=== PATIENT | male | born 1950 | race Caucasian/White ===

== ENCOUNTER 2017-12-07 06:27 | Day surgery (SDC) | payer MEDICARE, BC ==
[2017-12-07] MEDS: Lactated Ringers 1,000 ML IV SCH (06:42)
[2017-12-07] MEDS ORDERED: Propofol 200 MG/20 ML SDV ONE (07:42)
[2017-12-07] MEDS ORDERED: fentaNYL 100 MCG/2 ML SDV ONE (07:43)
[2017-12-07] MEDS ORDERED: Midazolam 1 MG/ML 2 ML SDV ONE (07:43)
[2017-12-07 09:27] VITALS: BP 122/78
--- NOTE | 2017-12-07 12:15 | OR ---
DATE OF PROCEDURE: 12/07/2017 PREOPERATIVE DIAGNOSIS: Blood in the stool. POSTOPERATIVE DIAGNOSES: 1. Distal rectal mass. 2. Polyp at 30 cm from the anal verge. 3. Diverticulosis. PROCEDURES: 1. Colonoscopy to the cecum with biopsy resection of small polyp 30 cm from the anal verge. 2. Snare cautery polypectomy of distal rectal mass. SURGEON: Rashaun Richmond MD. ANESTHESIA: IV anesthesia with monitored anesthesia care. INDICATION: This 67-year-old white male is here for a colonoscopy because of blood in his stool. His last colonoscopic exam he says was done in 2010. I counseled him for the procedure including risks and alternatives, and he gave his informed consent to proceed. DESCRIPTION OF PROCEDURE: The patient was placed in the left lateral decubitus position. IV anesthesia was administered by the Anesthesia Service. Time-out was held. A rectal exam was performed, where a soft mass was palpated. This was quite mobile. The flexible video Olympus colonoscope was then introduced through his anus, up his rectum and out his colon all the way to the cecum. En route, we saw several left-sided diverticula. There was no bleeding or inflammation associated with any of them. Once the cecum was reached, the scope was slowly withdrawn, examining the mucosa throughout. No other mucosal abnormalities were noted until we reached 30 cm from the anal verge. Here, we saw a small polyp, which was removed with a couple of bites of the biopsy forceps. The scope was withdrawn further. No other lesions were noted, until we retroflexed the scope in the rectum. Here, we saw a mass Right at the anus/rectum junction. A snare was passed about its base, it was elevated up away from the bowel wall and amputated as electrocautery was applied. The mass was removed and sent to pathology. The scope was then removed. He tolerated the procedure well. Rashaun Richmond MD /[id number] MTDD
== END 2017-12-07 09:30 | disposition home or self-care (01) ==
LOC: JP.SDS 06:27
PROVIDERS: ATTEND Surgery
DX: C20 Malignant neoplasm of rectum (principal); K63.5 Polyp of colon; K57.30 Diverticulosis of large intestine without perforation or abscess without bleeding; K21.9 Gastro-esophageal reflux disease without esophagitis; Z88.1 Allergy status to other antibiotic agents; Z91.030 Bee allergy status
CPT/HCPCS: 45380; 45385; 88305; J2250; J2704; J3010; J7120

== ENCOUNTER 2017-12-29 08:17 | Emergency (ER) | payer MEDICARE, BC ==
[2017-12-29] MEDS ORDERED: Sodium Chloride 0.9% 1,000 ML IV SCH (08:30)
[2017-12-29] MEDS ORDERED: Adenosine 6 MG/2 ML SDV IVPUSH ONE (08:30)
--- NOTE | 2017-12-29 08:40 | EDM.PDOC ---
ED HPI GENERAL MEDICAL PROBLEM - General Chief Complaint: Cardiovascular Problem Stated Complaint: THINK A-FIB Time Seen by Provider: 12/29/17 08:30 Source of Information: Reports: Patient, Old Records, RN History Limitations: Reports: Other (incomplete records) - History of Present Illness INITIAL COMMENTS - FREE TEXT/NARRATIVE: 67 yo male presents with heart palpitations since the middle of the night. He has no SOB or chest pain and is not light-headed with standing. He was cardioverted in [place] somewhat recently by cardiology for A flutter on referral from his primary. Has taken all his meds as prescribed and on time. Here now with his . Onset: Today Onset Date: 12/29/17 Onset Time: 04:00 Duration: Hour(s):, Constant Location: Reports: Chest Quality: Reports: Other (no pain) Severity: Mild Improves with: Reports: None Worsens with: Reports: None Context: Reports: Other (PHx of aflutter) Associated Symptoms: Reports: Other (some mild flushing) Treatments BI ANALYST: Reports: Other (see below) (none) - Related Data Allergies Allergy/AdvReac Type Severity Reaction Status Date / Time erythromycin base Allergy Other Verified 12/29/17 08:28 venom-honey bee Allergy Other Verified 12/29/17 08:28 [bee venom (honey bee)] Home Meds: Home Meds EPINEPHrine [Epipen 2-[place]] 0.3 mg IM ASDIRECTED PRN 03/19/15 [History] Multivitamin [Multi-Vitamin Daily] 1 tab PO DAILY 03/19/15 [History] Apixaban [Eliquis] 2.5 mg PO BID 12/02/17 [History] Cetirizine HCl [Zyrtec] 10 mg PO DAILY 12/02/17 [History] Ferrous Sulfate 325 mg PO BID 12/02/17 [History] Fluorouracil [Efudex 5% Cream] 1 applic TOP DAILY 12/02/17 [History] Lisinopril [Zestril] 2.5 mg PO DAILY 12/02/17 [History] Magnesium Citrate 200 mg PO DAILY 12/02/17 [History] Metoprolol Succinate [Toprol Xl] 100 mg PO DAILY 12/02/17 [History] traZODone HCl [Trazodone HCl] 50 mg PO BEDTIME PRN 12/02/17 [History] Past Medical History HEENT History: Reports: Cataract, Impaired Vision Cardiovascular History: Reports: Hypertension Other Cardiovascular History: cardoiversion 2017 Gastrointestinal History: Reports: Hemorrhoids Hematologic History: Reports: Anemia, Iron Deficiency Oncologic (Cancer) History: Reports: Basal Cell Carcinoma, Other (See Below) Other Oncologic History: basal cell Dermatologic History: Reports: Other (See Below) Other Dermatologic History: basal didier - Infectious Disease History Infectious Disease History: Reports: Chicken Pox, Mumps - Past Surgical History Cardiovascular Surgical History: Reports: Other (See Below) Other Cardiovascular Surgeries/Procedures: cardioversion 2017 GI Surgical History: Reports: Colonoscopy, Hernia, Inguinal Neurological Surgical History: Reports: Other (See Below) Other Neurological Surgeries/Procedures: temporalectomy Oncologic Surgical History: Reports: Other (See Below) Other Oncologic Surgeries/Procedures: basal cell removal Social & Family History - Family History Family Medical History: Noncontributory - Caffeine Use Caffeine Use: Reports: None ED ROS GENERAL - Review of Systems Review Of Systems: See Below Constitutional: Reports: No Symptoms HEENT: Reports: No Symptoms Respiratory: Reports: No Symptoms Cardiovascular: Reports: Palpitations GI/Abdominal: Reports: No Symptoms : Reports: No Symptoms Musculoskeletal: Reports: No Symptoms Skin: Reports: Other (mild flushing) Neurological: Reports: No Symptoms ED EXAM, GENERAL - Physical Exam Exam: See Below Exam Limited By: No Limitations General Appearance: Alert, WD/WN, No Apparent Distress Eye Exam: Bilateral Eye: Normal Inspection, PERRL Ears: Normal External Exam, Normal Canal, Hearing Grossly Normal Ear Exam: Bilateral Ear: Auricle Normal, Canal Normal Nose: Normal Inspection, Normal Mucosa, No Blood Throat/Mouth: Normal Inspection, Normal Lips, Normal Oropharynx, Normal Voice, No Airway Compromise Head: Atraumatic, Normocephalic Neck: Normal Inspection, Supple Respiratory/Chest: No Respiratory Distress, Lungs Clear, Normal Breath Sounds, No Accessory Muscle Use Cardiovascular: Regular Rate, Rhythm, Tachycardia GI/Abdominal: Normal Bowel Sounds, Soft, Non-Tender, No Distention Back Exam: Normal Inspection Extremities: Normal Inspection Neurological: Alert, Oriented, CN II-XII Intact, Normal Cognition, No Motor/ Sensory Deficits Psychiatric: Normal Affect, Normal Mood Skin Exam: Warm, Dry, Intact, Normal Color, No Rash Lymphatic: No Adenopathy EKG INTERPRETATION EKG Date: 12/29/17 Time: 08:25 Rhythm: A-Flutter Rate (Beats/Min): 136 [place]: Normal P-Wave: Absent QRS: Normal ST-T: Normal QT: Prolonged Comparison: NA - No Prior EKG Course - Vital Signs Text/Narrative:: Adenosine 6 mg IV given which transiently slowed his rate revealing the underlying flutter. When he sped up again he was back in the rhythm that he presented with. Anesthesia contacted for sedation before attempted cardioversion. Under propofol anesthesia Mr. Rene was cardioverted with 200J and converted to NSR in the 70-80's. BP initially in the 80's after cardioversion. He was given the rest of his liter of NS in a bolus and BP came up into the mid 90's and he is feeling fine. Last Recorded V/S: Last Vital Signs Temp 36.6 C 12/29/17 08:31 Pulse 79 12/29/17 10:15 Resp 23 H 12/29/17 10:15 BP 80/52 L 12/29/17 10:15 Pulse Ox 97 12/29/17 10:15 - Orders/Labs/Meds Orders: Active Orders 24 hr Category Date Time Status Cardiac Monitoring [RC] .As Directed Care 12/29/17 08:29 Active EKG Documentation Completion [RC] ASDIRECTED Care 12/29/17 08:29 Active Sodium Chloride 0.9% [Normal Saline] 1,000 ml Med 12/29/17 08:30 Active IV ASDIRECTED EKG 12 Lead [EK] Routine Ther 12/29/17 08:29 Ordered Medication Orders Sodium Chloride (Normal Saline) 1,000 mls @ 150 mls/hr IV ASDIRECTED JOÃO Last Admin: 12/29/17 08:47 Dose: 150 mls/hr Labs: Laboratory Tests 12/29/17 12/29/17 Range/Units 08:27 09:22 Sodium 140 (140-148) mmol/L Potassium 4.0 (3.6-5.2) mmol/L Chloride 105 (100-108) mmol/L Carbon Dioxide 22 (21-32) mmol/L Anion Gap 13.2 (5.0-14.0) mmol/L BUN 20 H (7-18) mg/dL Creatinine 1.4 H (0.8-1.3) mg/dL Est Cr Clr Drug Dosing TNP Estimated GFR (MDRD) 51 L (>60) Glucose 120 H (74-106) mg/dL Calcium 8.8 (8.5-10.1) mg/dL Troponin I < 0.017 (0.000-0.056) ng/mL TSH, Ultra Sensitive 1.840 (0.358-3.740) uIU/mL Meds: Medications Generic Name Dose Route Start Last Admin Trade Name Freq PRN Reason Stop Dose Admin Sodium Chloride 1,000 mls @ 150 mls/hr 12/29/17 08:30 12/29/17 08:47 Normal Saline IV 150 mls/hr ASDIRECTED JOÃO Administration Discontinued Medications Generic Name Dose Route Start Last Admin Trade Name Freq PRN Reason Stop Dose Admin Adenosine 6 mg 12/29/17 08:30 12/29/17 08:43 Adenocard IVPUSH 12/29/17 08:31 6 mg NOW ONE Administration Propofol Confirm 12/29/17 10:18 Diprivan 20 Ml Administered 12/29/17 10:19 Dose 200 mg .ROUTE .STK-MED ONE Departure - Departure Time of Disposition: 11:00 Disposition: Home, Self-Care 01 Condition: Good Clinical Impression: Encounter for cardioversion procedure Atrial flutter Qualifiers: Atrial flutter type: unspecified Qualified Code(s): I48.92 - Unspecified atrial flutter Instructions: Atrial Flutter Referrals: oJse Lynn MD [Primary Care Provider] - Forms: ED Department Discharge Additional Instructions: Continue your usual medications. Contact your load out worker to discuss today's events and to decide if follow up or med change is needed. Return here as needed. No driving for the next 6 hrs. - My Orders Last 24 Hours: My Active Orders 12/29/17 08:29 Cardiac Monitoring [RC] .As Directed EKG Documentation Completion [RC] ASDIRECTED EKG 12 Lead [EK] Routine 12/29/17 08:30 Sodium Chloride 0.9% [Normal Saline] 1,000 ml IV ASDIRECTED - Assessment/Plan Last 24 Hours: My Active Orders 12/29/17 08:29 Cardiac Monitoring [RC] .As Directed EKG Documentation Completion [RC] ASDIRECTED EKG 12 Lead [EK] Routine 12/29/17 08:30 Sodium Chloride 0.9% [Normal Saline] 1,000 ml IV ASDIRECTED
[2017-12-29] MEDS ORDERED: Propofol 200 MG/20 ML SDV ONE (10:18)
[2017-12-29 10:51] VITALS: BP 80/52
== END 2017-12-29 11:23 | disposition home or self-care (01) ==
LOC: JP.ED 08:17
DX: I48.92 Unspecified atrial flutter (principal); I10 Essential (primary) hypertension; D50.9 Iron deficiency anemia, unspecified; Z79.899 Other long term (current) drug therapy; Z88.1 Allergy status to other antibiotic agents; Z91.030 Bee allergy status
CPT/HCPCS: 36415; 80048; 84443; 84484; 92960; 93005; 93010; 96361; 96374; 99284; J0153; J2704; J7030

== ENCOUNTER 2018-04-26 08:38 | Day surgery (SDC) | payer MEDICARE, BC ==
[2018-04-26] MEDS ORDERED: Sodium Phosphate,Monobasic/Sodium Phosphate,Dibasic Enema 133 ML Bottle RECTAL ONE ×2 (08:50→09:15)
[2018-04-26] MEDS ORDERED: Lactated Ringers 1,000 ML IV SCH (09:00)
[2018-04-26 09:14] VITALS: BP 131/77
--- NOTE | 2018-04-26 12:28 | OR ---
DATE OF PROCEDURE: 04/26/2018 PREOPERATIVE DIAGNOSIS: History of distal rectal cancer. POSTOPERATIVE DIAGNOSIS: History of distal rectal cancer. No evidence of recurrence. PROCEDURE: Flexible sigmoidoscopy. SURGEON: Rashaun Richmond MD. ANESTHESIA: None. INDICATIONS: This is a 67-year-old white male who, in December of last year, underwent a colonoscopy with finding of a large polyp in his very distal rectum. This was removed and returned a cancer. He was referred to [facility], where they performed a local excision. They want an examination every three months for at least a year and then every six months. I counseled him for the flexible sigmoidoscopy, and he gave his informed consent to proceed. DESCRIPTION OF PROCEDURE: The patient was placed in the left lateral decubitus position. Time-out was held. A rectal exam was performed, which was unremarkable, except for some palpable scarring. The flexible video Olympus colonoscope was introduced into his anus and up into his rectum. It was retroflexed. The most distal rectum appeared erythematous, but unremarkable and appeared smooth. No obvious tumor. The scope was then removed. He tolerated the procedure well. Rashaun Richmond MD /[id number] MTDD
== END 2018-04-26 11:30 | disposition home or self-care (01) ==
LOC: JP.SDS 08:38
PROVIDERS: ATTEND Surgery
DX: Z08 Encounter for follow-up examination after completed treatment for malignant neoplasm (principal); Z85.048 Personal history of other malignant neoplasm of rectum, rectosigmoid junction, and anus; Z91.030 Bee allergy status; Z88.1 Allergy status to other antibiotic agents
CPT/HCPCS: 45330; J7120

== ENCOUNTER 2018-07-31 07:58 | Day surgery (SDC) | payer MEDICARE, BC ==
[2018-07-31] MEDS ORDERED: Lactated Ringers 1,000 ML IV SCH (08:30)
[2018-07-31 10:02] VITALS: BP 104/60
--- NOTE | 2018-08-01 11:24 | OR ---
DATE OF PROCEDURE: 07/31/2018 PREOPERATIVE DIAGNOSIS: History of distal rectal adenocarcinoma. POSTOPERATIVE DIAGNOSIS: History of distal rectal adenocarcinoma. PROCEDURE: Flexible sigmoidoscopy with biopsy of distal rectum. SURGEON: Rashaun Richmond MD ANESTHESIA: None. INDICATION: This 68-year-old white male last year underwent a colonoscopy with finding of a large polyp in his distal rectum. This was removed and returned adenocarcinoma. He went to the [facility], where they evaluated and resected more. It appeared to be appropriate for local resection, and he did not need an abdominoperineal resection. He is here for a 3- month flexible sigmoidoscopy followup. I counseled him for this, including risks and alternatives, and he gave his informed consent to proceed. DESCRIPTION OF PROCEDURE: The patient was placed in the left lateral decubitus position. Time-out was held. A rectal exam was performed, which was unremarkable, except for being able to palpate the prior excision site. The flexible fiberoptic colonoscope was used as a sigmoidoscope. It was introduced into the rectum and was retroflexed. The distal rectum appeared unremarkable. We did obtain biopsy of the site where the tumor was previously removed. The scope was straightened and removed. He tolerated the procedure well. Rashaun Richmond MD /[id number] MTDD
== END 2018-07-31 10:21 | disposition home or self-care (01) ==
LOC: JP.SDS 07:58
PROVIDERS: ATTEND Surgery
DX: D12.8 Benign neoplasm of rectum (principal); Z85.048 Personal history of other malignant neoplasm of rectum, rectosigmoid junction, and anus; Z88.1 Allergy status to other antibiotic agents; Z91.030 Bee allergy status
CPT/HCPCS: 88305

== ENCOUNTER 2018-10-25 08:01 | Day surgery (SDC) | payer MEDICARE, BC ==
[2018-10-25 09:36] VITALS: BP 132/83; PULSE 59
--- NOTE | 2018-10-25 10:52 | OR ---
DATE OF PROCEDURE: 10/25/2018 PREOPERATIVE DIAGNOSIS: History of distal adenocarcinoma of the rectum. POSTOPERATIVE DIAGNOSIS: History of distal adenocarcinoma of the rectum, unremarkable flexible sigmoidoscopy. PROCEDURE: Flexible sigmoidoscopy. SURGEON: Rashaun Richmond MD ANESTHESIA: None. INDICATION: About 9 months ago, this 68-year-old white male underwent a colonoscopy with finding of a distal rectal adenocarcinoma. This was excised. He was sent to [facility], where they did additional resection. He did not need an abdominal peroneal resection. He is undergoing every 3-month flexible sigmoidoscopies for a year. The time span will then stretch out after that to about every 6 months. I counseled him for a flexible sigmoidoscopy with possible biopsy, including risks and alternatives, and he gave his informed consent to proceed. The last time we did this, we did do a random biopsy in the area and it returned benign. DESCRIPTION OF PROCEDURE: The patient was placed in the left lateral decubitus position. Time-out was held. A rectal exam was performed, which was unremarkable. The flexible video colonoscope was used as the sigmoidoscope. It was introduced into the rectum and passed proximally up a short distance. It was then brought back in the rectum, where it was retroflexed. The distal rectum appeared unremarkable. The scope was straightened and removed. He tolerated the procedure well. The next examination should be a full colonoscopy, and he should have this done at [place], so they could look at their work. Rashaun Richmond MD /[id number] MTDBlanca
== END 2018-10-25 09:35 | disposition home or self-care (01) ==
LOC: JP.SDS 08:01
PROVIDERS: ATTEND Surgery
DX: Z08 Encounter for follow-up examination after completed treatment for malignant neoplasm (principal); Z88.1 Allergy status to other antibiotic agents; Z91.030 Bee allergy status; Z85.048 Personal history of other malignant neoplasm of rectum, rectosigmoid junction, and anus

== ENCOUNTER 2020-05-31 09:41 | Emergency (ER) | payer MEDICARE, BC ==
[2020-05-31 10:00] VITALS: PULSE 133
[2020-05-31] MEDS ORDERED: Sodium Chloride 0.9% 1,000 ML IV ONE (10:15)
[2020-05-31] MEDS ORDERED: Sodium Chloride 0.9% 10 ML Syringe FLUSH PRN (10:15)
--- NOTE | 2020-05-31 10:19 | EDM.PDOC ---
ED HPI GENERAL MEDICAL PROBLEM - General Chief Complaint: Cardiovascular Problem Stated Complaint: HIGH HEART RATE Time Seen by Provider: 05/31/20 10:07 Source of Information: Reports: Patient, Family, Old Records, RN Notes Reviewed History Limitations: Reports: No Limitations - History of Present Illness INITIAL COMMENTS - FREE TEXT/NARRATIVE: 69-year-old gentleman presents emergency department today complaint of palpitations, he has known history of atrial flutter has been cardioverted 2 times last was 2 years ago follows with cardiology in [place]. He denies any recent illness no fevers nausea vomiting may be fluid feels short of breath with exertion. Recently received a dose 1 of Covid vaccine did have palpitations following that but then quickly resolved. Last night he states he was feeling fine and then awoke this morning with the palpitations - Related Data Allergies Allergy/AdvReac Type Severity Reaction Status Date / Time erythromycin base Allergy Other Verified 05/31/20 10:21 venom-honey bee Allergy Other Verified 05/31/20 10:21 [bee venom (honey bee)] Home Meds: Home Meds EPINEPHrine [Epipen 2-[place]] 0.3 mg IM ASDIRECTED PRN 03/19/15 [History] Multivitamin [Multi-Vitamin Daily] 1 tab PO DAILY 03/19/15 [History] Apixaban [Eliquis] 5 mg PO BID 12/02/17 [History] Cetirizine HCl [Zyrtec] 10 mg PO DAILY 12/02/17 [History] Metoprolol Succinate [Toprol Xl] 100 mg PO DAILY 12/02/17 [History] lisinopriL [Zestril] 2.5 mg PO DAILY 12/02/17 [History] Past Medical History HEENT History: Reports: Allergic Rhinitis, Cataract, Impaired Vision Other HEENT History: GLASSES Cardiovascular History: Reports: Arrhythmia, Hypertension Other Cardiovascular History: cardoiversion 2017 and 2018, FOR ATRIAL FLUTTER, NOT CURRENTLY PRESENT Gastrointestinal History: Reports: Colon Polyp, Hemorrhoids Musculoskeletal History: Reports: Fracture, Osteoarthritis Endocrine/Metabolic History: Reports: Obesity/BMI 30+ Hematologic History: Reports: Anemia, Iron Deficiency Oncologic (Cancer) History: Reports: Basal Cell Carcinoma, Other (See Below) Other Oncologic History: Rectal Uche Dermatologic History: Reports: Other (See Below) Other Dermatologic History: basal celL - Infectious Disease History Infectious Disease History: Reports: Chicken Pox, Measles, Mumps - Past Surgical History HEENT Surgical History: Reports: Cataract Surgery, Other (See Below) Other HEENT Surgeries/Procedures: lense implants Cardiovascular Surgical History: Reports: Other (See Below) Other Cardiovascular Surgeries/Procedures: cardioversion 2017, temporal endarterectomy GI Surgical History: Reports: Colonoscopy, Hernia, Inguinal, Other (See Below) Other GI Surgeries/Procedures: rectal ca with surgery Other Neurological Surgeries/Procedures: temporalectomy Musculoskeletal Surgical History: Reports: None Oncologic Surgical History: Reports: Other (See Below) Other Oncologic Surgeries/Procedures: COLON CANCER, basal cell removal Social & Family History - Family History Family Medical History: No Pertinent Family History - Tobacco Use Tobacco Use Status *Q: Never Tobacco User - Caffeine Use Caffeine Use: Reports: None - Recreational Drug Use Recreational Drug Use: No ED ROS GENERAL - Review of Systems Review Of Systems: See Below Constitutional: Denies: Fever, Chills HEENT: Reports: No Symptoms Respiratory: Reports: No Symptoms Cardiovascular: Reports: Dyspnea on Exertion, Palpitations GI/Abdominal: Reports: No Symptoms ED EXAM, GENERAL - Physical Exam Exam: See Below Exam Limited By: No Limitations General Appearance: Alert, WD/WN, No Apparent Distress Respiratory/Chest: No Respiratory Distress, Lungs Clear, Normal Breath Sounds, No Accessory Muscle Use, Chest Non-Tender Cardiovascular: Tachycardia GI/Abdominal: Soft, Non-Tender Extremities: No Pedal Edema #1 Interpretation EKG Date: 05/31/20 Rhythm: A-Flutter [place]: Normal P-Wave: Variable QRS: Normal ST-T: Normal QT: Normal Comparison: Change From Previous EKG #2 Interpretation EKG Date: 05/31/20 Rhythm: NSR [place]: Normal P-Wave: Present QRS: Normal ST-T: Normal QT: Normal Comparison: Change From Previous EKG Course - Vital Signs Last Recorded V/S: Last Vital Signs Temp 97.7 F 05/31/20 09:59 Pulse 133 H 05/31/20 09:59 Resp 10 L 05/31/20 10:20 BP 130/87 05/31/20 10:20 Pulse Ox 95 05/31/20 10:20 - Orders/Labs/Meds Orders: Active Orders 24 hr Category Date Time Status Cardiac Monitoring [RC] .As Directed Care 05/31/20 10:16 Active EKG Documentation Completion [RC] ASDIRECTED Care 05/31/20 10:17 Active EKG Documentation Completion [RC] ASDIRECTED Care 05/31/20 11:56 Ordered Peripheral IV Care [RC] . DIRECTED Care 05/31/20 10:16 Active Sodium Chloride 0.9% [Normal Saline] 1,000 ml Med 05/31/20 10:15 Active IV .BOLUS Sodium Chloride 0.9% [Saline Flush] Med 05/31/20 10:15 Active 10 ml FLUSH ASDIRECTED PRN Peripheral IV Insertion Adult [OM.PC] Stat Oth 05/31/20 10:15 Ordered EKG 12 Lead [EK] Stat Ther 05/31/20 10:17 Ordered EKG 12 Lead [EK] Stat Ther 05/31/20 11:56 Ordered Medication Orders Sodium Chloride (Normal Saline) 1,000 mls @ 500 mls/hr IV .BOLUS ONE Stop: 05/31/20 12:14 Last Admin: 05/31/20 10:47 Dose: 500 mls/hr Documented by: PARUL Sodium Chloride (Saline Flush) 10 ml FLUSH ASDIRECTED PRN PRN Reason: Keep Vein Open Last Admin: 05/31/20 11:04 Dose: 10 ml Documented by: PARUL Labs: Laboratory Tests 05/31/20 05/31/20 Range/Units 10:35 10:35 WBC 6.0 (4.5-11.0) K/uL RBC 4.91 (4.30-5.90) M/uL Hgb 15.0 (12.0-15.0) g/dL Hct 44.2 (40.0-54.0) % MCV 90 (80-98) fL MCH 31 (27-31) pg MCHC 34 (32-36) % Plt Count 240 (150-400) K/uL Neut % (Auto) 53 (36-66) % Lymph % (Auto) 34 (24-44) % [place] % (Auto) 10 H (2-6) % Eos % (Auto) 3 (2-4) % Baso % (Auto) 1 (0-1) % Sodium 144 (140-148) mmol/L Potassium 4.4 (3.6-5.2) mmol/L Chloride 107 (100-108) mmol/L Carbon Dioxide 25 (21-32) mmol/L Anion Gap 11.7 (5.0-14.0) mmol/L BUN 20 H (7-18) mg/dL Creatinine 1.2 (0.8-1.3) mg/dL Est Cr Clr Drug Dosing 68.50 mL/min Estimated GFR (MDRD) > 60 (>60) Glucose 104 (74-106) mg/dL Calcium 9.0 (8.5-10.1) mg/dL Total Bilirubin 0.9 (0.2-1.0) mg/dL AST 28 (15-37) U/L ALT 38 (12-78) U/L Alkaline Phosphatase 112 (46-116) U/L Troponin I < 0.017 (0.000-0.056) ng/mL Total Protein 7.6 (6.4-8.2) g/dL Albumin 3.5 (3.4-5.0) g/dL Globulin 4.1 H (2.3-3.5) g/dL Albumin/Globulin Ratio 0.9 L (1.2-2.2) Meds: Medications Generic Name Dose Route Start Last Admin Trade Name Freq PRN Reason Stop Dose Admin Sodium Chloride 1,000 mls @ 500 mls/hr 05/31/20 10:15 05/31/20 10:47 Normal Saline IV 05/31/20 12:14 500 mls/hr .BOLUS ONE Administration Sodium Chloride 10 ml 05/31/20 10:15 05/31/20 11:04 Saline Flush FLUSH 10 ml ASDIRECTED PRN Administration Keep Vein Open Discontinued Medications Generic Name Dose Route Start Last Admin Trade Name Freq PRN Reason Stop Dose Admin Ibutilide Fumarate 1 mg 05/31/20 11:04 05/31/20 11:09 [place] IVPUSH 05/31/20 11:05 1 mg ONETIME ONE Administration Departure - Departure Time of Disposition: 11:58 Disposition: Home, Self-Care 01 Condition: Fair Clinical Impression: Atrial flutter Qualifiers: Atrial flutter type: unspecified Qualified Code(s): I48.92 - Unspecified atrial flutter Instructions: Atrial Flutter Referrals: Jose Lynn MD [Primary Care Provider] - Forms: ED Department Discharge Additional Instructions: Please contact your head of ict on Tuesday for further evaluation, continue with your current medications, call return to the emergency department with worsening of symptoms Sepsis Event Note (ED) - Evaluation Sepsis Screening Result: No Definite Risk - Focused Exam Vital Signs: Vital Signs Temp Pulse Resp BP Pulse Ox 05/31/20 10:20 10 L 130/87 95 05/31/20 09:59 97.7 F 133 H 19 137/103 H 95 - My Orders Last 24 Hours: My Active Orders 05/31/20 10:15 Sodium Chloride 0.9% [Normal Saline] 1,000 ml IV .BOLUS Sodium Chloride 0.9% [Saline Flush] 10 ml FLUSH ASDIRECTED PRN Peripheral IV Insertion Adult [OM.PC] Stat 05/31/20 10:16 Cardiac Monitoring [RC] .As Directed Peripheral IV Care [RC] . DIRECTED 05/31/20 10:17 EKG Documentation Completion [RC] ASDIRECTED EKG 12 Lead [EK] Stat 05/31/20 11:56 EKG Documentation Completion [RC] ASDIRECTED EKG 12 Lead [EK] Stat - Assessment/Plan Last 24 Hours: My Active Orders 05/31/20 10:15 Sodium Chloride 0.9% [Normal Saline] 1,000 ml IV .BOLUS Sodium Chloride 0.9% [Saline Flush] 10 ml FLUSH ASDIRECTED PRN Peripheral IV Insertion Adult [OM.PC] Stat 05/31/20 10:16 Cardiac Monitoring [RC] .As Directed Peripheral IV Care [RC] . DIRECTED 05/31/20 10:17 EKG Documentation Completion [RC] ASDIRECTED EKG 12 Lead [EK] Stat 05/31/20 11:56 EKG Documentation Completion [RC] ASDIRECTED EKG 12 Lead [EK] Stat Plan: Assessment Acuity = acute Site and laterality = atrial flutter status post chemical conversion to normal sinus rhythm Etiology = unknown Manifestations = none Location of injury = Home Lab values = CBC CMP troponin all within normal limits initial EKG demonstrates a flutter type pattern postconversion EKG demonstrates normal sinus rhythm Plan Did review lab work EKG results with him there is a possibility his recent Covid shot may be contributing to his atrial flutter he is going to contact his head of ict on Tuesday for further evaluation he will remain on Eliquis elected not to change his medications at this time This note was dictated using [facility] voice recognition software please call with any questions on syntax or grammar.
[2020-05-31] MEDS ORDERED: Ibutilide 1 MG/10 ML Vial IVPUSH ONE (11:04)
[2020-05-31 12:26] VITALS: BP 124/82
== END 2020-05-31 12:21 | disposition home or self-care (01) ==
LOC: JP.ED 09:41
DX: I48.92 Unspecified atrial flutter (principal); I10 Essential (primary) hypertension; E66.9 Obesity, unspecified; Z68.29 Body mass index [BMI] 29.0-29.9, adult; Z88.1 Allergy status to other antibiotic agents; Z91.030 Bee allergy status; Z79.01 Long term (current) use of anticoagulants; Z79.899 Other long term (current) drug therapy
CPT/HCPCS: 36415; 80053; 84484; 85025; 93005; 96374; 99284; 99285; J1742; J7050

== ENCOUNTER 2021-07-24 09:07 | Emergency (ER) | payer MEDICARE, BC ==
[2021-07-24] MEDS ORDERED: Propofol 200 MG/20 ML SDV IVPUSH ONE (09:19)
[2021-07-24 09:21] VITALS: BP 163/104; PULSE 144
== END 2021-07-24 10:35 | disposition home or self-care (01) ==
LOC: JP.ED 09:07
DX: I48.92 Unspecified atrial flutter (principal); E66.9 Obesity, unspecified; Z88.1 Allergy status to other antibiotic agents; Z68.28 Body mass index [BMI] 28.0-28.9, adult; Z91.030 Bee allergy status; Z79.01 Long term (current) use of anticoagulants; Z79.899 Other long term (current) drug therapy
CPT/HCPCS: 36415; 80048; 84484; 85025; 92960; 93005; 93010; 99282; 99285-25; J2704

== ENCOUNTER 2023-07-10 09:41 | Emergency (ER) | payer MEDICARE, BC ==
[2023-07-10 10:17] VITALS: BP 190/77; PULSE 91
[2023-07-10 10:57] LABS: BASOPHILS ABSOLUTE AUTO 0.04 K/uL (0.00-0.10); BASOPHILS PERCENT AUTO 0.3 % (0.1-1.3); EOSINOPHILS ABSOLUTE AUTO 0.07 K/uL (0.00-0.40); EOSINOPHILS PERCENT AUTO 0.5 % (0.0-5.4); HEMATOCRIT 40.8 % (38.4-49.7); IMMATURE GRAN ABSOLUTE AUTO 0.06 K/uL (0.00-0.23); IMMATURE GRAN PERCENT AUTO 0.4 % (0.0-0.7); LYMPHOCYTES ABSOLUTE AUTO 2.13 K/uL (0.8-3.3); LYMPHOCYTES PERCENT AUTO 15.5 % (11.4-47.7); MEAN CORPUSCULAR HGB CONC 34.3 g/dL (31.6-35.5); MEAN CORPUSCULAR VOLUME 87.4 fL (81.4-99.0); MONOCYTES ABSOLUTE AUTO 0.93 K/uL (0.20-0.90); MONOCYTES PERCENT AUTO 6.8 % (3.3-12.6); NEUTROPHILS ABSOLUTE AUTO 10.54 K/uL (1.0-7.6); NEUTROPHILS PERCENT AUTO 76.5 % (40.0-78.1); PLATELET COUNT,PLT 219 K/uL (130-375); RED BLOOD CELL COUNT 4.67 M/uL (4.14-5.76); WHITE BLOOD CELL COUNT,WBC 13.8 K/uL (3.2-11.0)
[2023-07-10] MEDS: cefTRIAXone 1 GM in Sodium Chloride 0.9% 50 ML IV ONE (11:12)
[2023-07-10] MEDS: Sodium Chloride 0.9% 10 ML Syringe FLUSH PRN (11:14)
[2023-07-10 11:16] LABS: A/G RATIO 0.7 (1.2-2.2); ALANINE AMINOTRANSFERASE,ALT 29 U/L (12-78); ALBUMIN 3.2 g/dL (3.4-5.0); ALKALINE PHOSPHATASE 103 U/L (46-116); ASPARTATE AMNIOTRANSFERASE,AST 21 U/L (15-37); BILIRUBIN TOTAL 2.1 mg/dL (0.2-1.0); BLOOD UREA NITROGEN,BUN 19 mg/dL (7-18); CALCIUM 8.8 mg/dL (8.5-10.1); CARBON DIOXIDE,CO2 25 mmol/L (21-32); CHLORIDE,CL 101 mmol/L (100-108); CREATININE 1.2 mg/dL (0.8-1.3); EST CRCL DRUG DOSING (CG) 67.48 mL/min; ESTIMATED GFR 65 mL/min (>60); GLUCOSE RANDOM 138 mg/dL (74-106); PROTEIN TOTAL,TP 7.9 g/dL (6.4-8.2); SODIUM,NA 137 mmol/L (140-148)
== END 2023-07-10 13:08 | disposition home or self-care (01) ==
LOC: JP.ED 09:41
DX: L03.116 Cellulitis of left lower limb (principal); I10 Essential (primary) hypertension; E66.9 Obesity, unspecified; Z68.28 Body mass index [BMI] 28.0-28.9, adult; Z79.899 Other long term (current) drug therapy; Z88.1 Allergy status to other antibiotic agents; Z91.030 Bee allergy status
CPT/HCPCS: 36415; 80053; 83605; 84145; 85025; 86140; 96365; 99283; J0696; J3490

== ENCOUNTER 2023-07-11 16:42 | Emergency (ER) | payer MEDICARE, BC ==
[2023-07-11 18:26] VITALS: BP 123/70; PULSE 91
[2023-07-11 18:56] LABS: BASOPHILS ABSOLUTE AUTO 0.04 K/uL (0.00-0.10); BASOPHILS PERCENT AUTO 0.3 % (0.1-1.3); EOSINOPHILS PERCENT AUTO 0.9 % (0.0-5.4); HEMATOCRIT 42.5 % (38.4-49.7); HEMOGLOBIN 14.7 g/dL (12.9-16.9); IMMATURE GRAN ABSOLUTE AUTO 0.06 K/uL (0.00-0.23); IMMATURE GRAN PERCENT AUTO 0.5 % (0.0-0.7); LYMPHOCYTES ABSOLUTE AUTO 1.83 K/uL (0.8-3.3); LYMPHOCYTES PERCENT AUTO 15.9 % (11.4-47.7); MEAN CORPUSCULAR HEMOGLOBIN 30.1 pg (31.6-35.5); MEAN CORPUSCULAR HGB CONC 34.6 g/dL (31.6-35.5); MEAN CORPUSCULAR VOLUME 86.9 fL (81.4-99.0); MONOCYTES ABSOLUTE AUTO 0.78 K/uL (0.20-0.90); MONOCYTES PERCENT AUTO 6.8 % (3.3-12.6); NEUTROPHILS ABSOLUTE AUTO 8.71 K/uL (1.0-7.6); NEUTROPHILS PERCENT AUTO 75.6 % (40.0-78.1); PLATELET COUNT,PLT 239 K/uL (130-375); RED BLOOD CELL COUNT 4.89 M/uL (4.14-5.76); WHITE BLOOD CELL COUNT,WBC 11.5 K/uL (3.2-11.0)
[2023-07-11] MEDS: Sodium Chloride 0.9% 1,000 ML IV ONE (19:00)
[2023-07-11 19:14] LABS: PROTHROMBIN TIME 10.5 sec (9.2-10.6)
[2023-07-11 19:17] LABS: A/G RATIO 0.6 (1.2-2.2); ALANINE AMINOTRANSFERASE,ALT 27 U/L (12-78); ALBUMIN 3.2 g/dL (3.4-5.0); ALKALINE PHOSPHATASE 100 U/L (46-116); ASPARTATE AMNIOTRANSFERASE,AST 20 U/L (15-37); BILIRUBIN TOTAL 1.3 mg/dL (0.2-1.0); BLOOD UREA NITROGEN,BUN 17 mg/dL (7-18); C-REACTIVE PROTEIN 21.14 mg/dL (<0.50); CALCIUM 9.1 mg/dL (8.5-10.1); CARBON DIOXIDE,CO2 25 mmol/L (21-32); CHLORIDE,CL 99 mmol/L (100-108); CREATININE 1.3 mg/dL (0.8-1.3); EST CRCL DRUG DOSING (CG) 62.29 mL/min; ESTIMATED GFR 59 mL/min (>60); GLUCOSE RANDOM 126 mg/dL (74-106); POTASSIUM,K 4.1 mmol/L (3.6-5.2); PROTEIN TOTAL,TP 8.5 g/dL (6.4-8.2); SODIUM,NA 137 mmol/L (140-148)
[2023-07-11 19:18] LABS: ANION GAP 17.1 mmol/L (5.0-14.0)
[2023-07-11] MEDS: Vancomycin 2 GM in Sodium Chloride 0.9% 500 ML IV ONE (21:48)
== END 2023-07-12 00:25 ==
LOC: JP.ED 16:42
DX: L03.115 Cellulitis of right lower limb (principal); L97.529 Non-pressure chronic ulcer of other part of left foot with unspecified severity; I10 Essential (primary) hypertension; E66.9 Obesity, unspecified; Z88.1 Allergy status to other antibiotic agents; Z91.030 Bee allergy status; Z79.899 Other long term (current) drug therapy; Z68.28 Body mass index [BMI] 28.0-28.9, adult; Z79.01 Long term (current) use of anticoagulants
CPT/HCPCS: 36415; 73700; 76377; 80053; 83605; 83690; 84550; 85025; 85610; 86140; 87040; 96361; 96365; 96366; 99284; 99285; J3370; J7030; J7040